=== PATIENT | male | born 1980 | race Caucasian/White ===

== ENCOUNTER 2016-12-01 13:43 | Emergency (ER) | payer BC ==
[~2016-12-01] VITALS: Ht 177.8 cm; Wt 89.0 kg
[~2016-12-01 13:43] MED LIST: ALPR0.5T PO; HYDR-3498 PO; IBUP-1542 PO; LORA1TAB PO; MAG-19 PO; OMEP20CA16 PO
[2016-12-01 13:49] VITALS: Ht 177.8 cm; Wt 89.0 kg
[2016-12-01] MEDS ORDERED: KETOROLAC 30 MG INJ IM STA (14:49)
[2016-12-01 15:23] LABS: ADD UMIC NO; UR ASCORBIC ACID NEGATIVE (NEGATIVE); UR BILIRUBIN (Dip) NEGATIVE (NEGATIVE); UR BLOOD (Dip) NEGATIVE (NEGATIVE); UR CLARITY CLEAR (CLEAR); UR COLOR STRAW (YELLOW); UR GLUCOSE (Dip) NEGATIVE (NEGATIVE); UR KETONES (Dip) NEGATIVE (NEGATIVE); UR LEUKOCYTE ESTERASE (Dip) NEGATIVE Leu/ul (NEGATIVE); UR NITRITE (Dip) NEGATIVE (NEGATIVE); UR SPECIFIC GRAVITY (Dip) 1.003 (1.003-1.030); UR TOTAL PROTEIN (Dip) NEGATIVE (NEGATIVE); UR UROBILINOGEN (Dip) NEGATIVE (NEGATIVE)
--- NOTE | 2016-12-01 15:30 | RADRPT ---
PROCEDURE: XR Lumbar Spine 3 Views. CLINICAL INDICATION: Low back pain. TECHNIQUE: Lumbar spine study including AP, lateral and coned L5-S1 views was performed. COMPARISON: No prior studies are available for comparison. FINDINGS: Lumbar spine demonstrates a normal lordosis. No fractures or destructive bony lesions are observed. Intervertebral disk heights appear normal. The facet joints are unremarkable. Soft tissues surro unding the spine appear normal. IMPRESSION: Unremarkable lumbar spine. If further characterization is needed CT or MRI could be helpful. If there is high clinical suspicion for traumatic injury, further evaluation with CT should be consi dered. RPTAT: AA .Davin Barlow MD, Date Time Electronically viewed and signed by .Davin Barlow MD, on 12/01/2016 15:30 .P/
[2016-12-01] MEDS ORDERED: CYCL-319 PO (15:45)
[2016-12-01] MEDS ORDERED: NAPR-260 PO (15:46)
--- NOTE | 2016-12-01 16:48 | ERD ---
ER Documentation Chief Complaint Date/Time DATE: 12/01/16 TIME: 16:45 Chief Complaint back pain x 10 days HPI This patient is a 36-year-old male presenting to the emergency department with complaints of left sided paraspinal lumbar pain with onset 10 days ago. He denies injury or trauma. Pain has worsened and is constant now. Symptoms are exacerbated with sitting. Symptoms slightly alleviated with rest. No medication has been taken for relief of symptoms. The patient denies loss of bowel or bladder function, fevers, chills, nausea, vomiting, diarrhea, tingling in the lower extremities, or other symptoms. ROS All systems reviewed and are negative except as per history of present illness. Medications Home Meds Active Scripts Naproxen* (Naprosyn*) 500 Mg Tablet, 500 MG PO BID Y for PAIN AND/OR INFLAMMATION, #30 TAB Prov:JOSÉ MIGUEL BURGER PA-C 12/01/16 Cyclobenzaprine Hcl* (Cyclobenzaprine Hcl*) 10 Mg Tablet, 10 MG PO TID, #15 TAB Prov:JOSÉ MIGUEL BURGER PA-C 12/01/16 Magaldrate/Simethicone* (Mylanta*) 355 Ml Susp, 30 ML PO QID Y for GASTROINTESTINAL UPSET, #1 BOTTLE Prov:JOE RIOJAS NP 01/08/16 Omeprazole* (Omeprazole*) 20 Mg Capsule.dr, 20 MG PO DAILY, #30 Prov:JOE RIOJAS NP 01/08/16 Hydrocodone Bit-Acetaminophen* ([place]*) 5-325 Mg Tab, 1 TAB PO Q6 Y for PAIN, # 10 TAB Prov:KRYSTINA DUMONT PA-C 04/23/15 Ibuprofen* (Motrin*) 600 Mg Tab, 600 MG PO Q6, #20 TAB Prov:KRYSTINA DUMONT PA-C 04/23/15 Alprazolam* (Xanax*) 0.5 Mg Tab, 0.5 MG PO Q8H Y for ANXIETY, #6 TAB Prov:BRYANT FLOREZ PA-C 04/06/15 Lorazepam* (Lorazepam*) 1 Mg Tablet, 1 MG PO Q8 for ANXIETY, #10 TAB Prov:JOSÉ MIGUEL RUBIO 11/28/14 Allergies Allergies: Coded Allergies: No Known Allergy (Unverified , 04/23/15) PMhx/Soc Medical and Surgical Hx: pt denies Medical Hx History of Surgery: Yes (Unrecalled Ab Surg during childhood) Anesthesia Reaction: No Hx Neurological Disorder: No Hx Respiratory Disorders: No Hx Cardiac Disorders: No Hx Psychiatric Problems: No Hx Miscellaneous Medical Probl: No Hx Alcohol Use: No Hx Substance Use: No Hx Tobacco Use: No Smoking Status: Never smoker Physical Exam Vitals Vital Signs Date Time Temp Pulse Resp B/P Pulse Ox O2 Delivery O2 Flow Rate FiO2 12/01/16 13:49 98.1 77 18 136/77 99 Physical Exam Const: Nontoxic, well-appearing male in no acute distress. Head: Atraumatic Eyes: Normal Conjunctiva ENT: Normal External Ears, Nose and Mouth. Neck: Full range of motion..~ No meningismus. Resp: Clear to auscultation bilaterally Cardio: Regular rate and rhythm, no murmurs Abd: Soft, non tender, non distended. Normal bowel sounds Skin: No petechiae or rashes Back: No midline or flank tenderness. Negative straight leg raise bilaterally. Ext: No cyanosis, or edema Neur: Awake and alert Psych: Normal Mood and Affect Results 24 hrs Laboratory Tests Test 12/01/16 14:52 Urine Color STRAW Urine Clarity CLEAR Urine pH 5.0 Urine Specific [place] 1.003 Urine Ketones NEGATIVEmg/dL Urine Nitrite NEGATIVEmg/dL Urine Bilirubin NEGATIVEmg/dL Urine Urobilinogen NEGATIVEmg/dL Urine Leukocyte Esterase NEGATIVELeu/ul Urine Hemoglobin NEGATIVEmg/dL Urine Glucose NEGATIVEmg/dL Urine Total Protein NEGATIVEmg/dl Current Medications Medications (Trade) Dose Ordered Sig/[place] Route PRN Reason Start Time Stop Time Status Last Admin Dose Admin Ketorolac Tromethamine (Toradol) 30 mg ONCE STAT IM 12/01/16 14:49 12/01/16 14:51 DC 12/01/16 14:56 [place] [id number] Radiology Main Line: [phone] DIAGNOSTIC IMAGING REPORT Patient: FARHANA SPENCE : 1980 Age: 36 Sex: M MR #: [id number] DOS: 12/01/16 0000 Ordering MD: JOSÉ MIGUEL BURGER PA-C Location: [facility] Room/Bed: PROCEDURE: XR Lumbar Spine 3 Views. CLINICAL INDICATION: Low back pain. TECHNIQUE: Lumbar spine study including AP, lateral and coned L5-S1 views was performed. COMPARISON: No prior studies are available for comparison. FINDINGS: Lumbar spine demonstrates a normal lordosis. No fractures or destructive bony lesions are observed. Intervertebral disk heights appear normal. The facet joints are unremarkable. Soft tissues surrounding the spine appear normal. IMPRESSION: Unremarkable lumbar spine. If further characterization is needed CT or MRI could be helpful. If there is high clinical suspicion for traumatic injury, further evaluation with CT should be considered. RPTAT: AA .Davin Barlow MD, Date Time Electronically viewed and signed by .Davin Barlow MD, MD on 12/01/2016 15:30 .P/ CC: JOSÉ MIGUEL BURGER PA-C Procedures/MDM 36-year-old male presenting to the emergency department for left paraspinal lumbar pain for the past 10 days. Physical examination is benign. Negative straight leg raise bilaterally. The patient denies loss of bowel or bladder function and I have low suspicion for cauda equina, epidural abscess, spondylolisthesis, or other emergent conditions. The patient was given IM Toradol in the department and he was feeling significantly improved on reevaluation. Urinalysis is ordered looking for any signs of proteinuria, hematuria, or other abnormalities and none were found. The patient's symptoms are most likely related to a musculoskeletal etiology. Imaging and lab results were shared with the patient. He is stable for outpatient management with a prescription for Flexeril and naproxen. He agreed with the discharge plan and diagnosis. He is to have close follow-up with the primary care physician. Strict ER return precautions were discussed. Departure Diagnosis: Primary Impression: Lumbar strain Condition: Fair Patient Instructions: Self-Care for Low Back Pain Additional Instructions: Follow up with your PCP within the next 1-3 days for a repeat evaluation. If you require a referral to a specialist, your Primary Care Provider may be able to provide this for you. In most patient cases, a referral is not required. If you have further questions regarding this matter, please ask your Primary Care Provider. Return the the emergency department immediately if symptoms worsen or change. If you have any questions regarding medications, ask your pharmacist or us before you leave. If any adverse reactions, occur while taking your medications, discontinue the treatment and return to the emergency department immediately. If any new or worsening symptoms, uncontrolled fevers, or other unexplained symptoms occur, return to the emergency department immediately. Take your medications as directed, and complete the entire course of treatment. JOSÉ MIGUEL BURGER PA-C Dec 01, 2016 16:48
== END 2016-12-01 16:10 | disposition home or self-care (01) ==
LOC: FTE 13:43
DX: S39.012A Strain of muscle, fascia and tendon of lower back, initial encounter (principal); X58.XXXA Exposure to other specified factors, initial encounter; Y92.9 Unspecified place or not applicable
CPT/HCPCS: 72100; 81003; 96372; 99284; J1885

== ENCOUNTER 2017-11-21 21:34 | Inpatient (IN) | END 2017-11-23 16:20 | disposition home or self-care (01) | DRG 310 ==

== ENCOUNTER 2017-12-13 02:12 | Observation (INO) | END 2017-12-14 12:54 | disposition home or self-care (01) ==